=== PATIENT | female | born 1975 | race Caucasian/White ===

== ENCOUNTER 2023-06-27 02:54 | Emergency (ER) | payer MEDICAID, SELFPAY ==
[2023-06-27 03:02] VITALS: BP 131/77; PULSE 103; RESP 21; TEMP 36.6; O2SAT 96
--- NOTE | 2023-06-27 03:06 | ECG_ITS ---
[facility] Test Date: 2023-06-27 Pat Name: Sally Andrews Department: Room: Gender: Female [employer] Teammate: : 1975 Requested By: Rusty Ruiz Order Number: [id number] Mark MD: Nile Perez M.D. Measurements Intervals [place] Rate: 98 P: 14 UT: 130 QRS: 40 QRSD: 81 T: 83 QT: 352 QTc: 451 Interpretive Statements SINUS RHYTHM No previous ECG available for comparison Electronically Signed On 06-27-2023 12:17:48 NEUROPHYSIOLOGY TECH by Nile Perez M.D. [id number]
--- NOTE | 2023-06-27 03:06 | XRR_ITS ---
PROCEDURE INFORMATION: Exam: XR Chest Exam date and time: 06/27/2023 3:12 AM Age: 48 years old Clinical indication: Shortness of breath; Additional info: SOB TECHNIQUE: Imaging protocol: Radiologic exam of the chest. Views: 1 view. COMPARISON: No relevant prior studies available. FINDINGS: Lungs: Unremarkable. No consolidation. Pleural spaces: Unremarkable. No pleural effusion. No pneumothorax. Heart/Mediastinum: Unremarkable. No cardiomegaly. Bones/joints: Unremarkable. XR/XR chest 1V portable [id number] IMPRESSION: No acute findings.
--- NOTE | 2023-06-27 03:07 | W.ED.SOB ---
HPI - SOB/Dyspnea General: Chief Complaint: Shortness of Breath/Dyspnea Stated Complaint: nereyda helm Time Seen by Provider: 06/27/23 02:55 Source: patient Mode of arrival: ambulatory Limitations: no limitations History of Present Illness: HPI Narrative: 48-year-old female has a history of asthma states over the last 3 days she has had increasing cough and congestion along with wheezing. She denies any fever she denies any chest pain she denies any worsening improving factors. Associated symptoms: Deny abdominal pain, chest pain, fever(s), nausea or vomiting Review of Systems Const: Denies: fever(s), chills, body aches or change in appetite ENMT: Denies: throat pain or dental pain Card: Denies: chest pain Resp: Reports: dyspnea, non-productive cough and wheezing GI: Denies: abdominal pain, nausea, vomiting or diarrhea : Denies: dysuria Musc: Denies: neck pain or back pain Skin/Breast: Denies: rash Neuro: Denies: headache(s) Physical Exam Const: COMMON NORMALS: no acute distress, patient oriented x3 and healthy appearing HENMT: COMMON NORMALS: normocephalic and atraumatic HEAD & SCALP: normocephalic and atraumatic Neck/C-Spine: COMMON NORMALS: full ROM and supple Chest: COMMONS NORMALS: normal inspection of the chest and normal palpation of entire chest wall Resp: COMMON NORMALS: normal respiratory effort, No retractions and No use of accessory muscles AUSCULTATION: wheezes Cardio: COMMON NORMALS: regular rate, regular rhythm and No murmurs present (Cardio) RATE: regular rate RHYTHM: regular rhythm GI: COMMON NORMALS: Normal to inspection, nondistended, normoactive bowel sounds present, Soft to palpation, non-tender and no masses PALPATION: Yes Soft to palpation Extremity: COMMON NORMALS: normal to inspection and full ROM Neuro: COMMON NORMALS: patient oriented x3, moves all extremities and no focal motor deficits Psych: COMMON NORMALS: mental status grossly normal, Normal thought process present and cooperative THOUGHT PROCESS: Normal thought process present Skin: COMMON NORMALS: no rashes or lesions noted and no wounds GENERAL SKIN EXAM: no rashes or lesions noted Course Vital Signs: Vital signs: Vital Signs Temperature 97.8 F 06/27/23 03:02 Pulse Rate 93 06/27/23 04:02 Respiratory Rate 16 06/27/23 04:02 Blood Pressure 112/72 06/27/23 04:02 Pulse Oximetry 91 06/27/23 04:02 Oxygen Delivery Me thod Room Air 06/27/23 03:25 MDM - SOB/Dyspnea Medical Decision Making Patient presents here with shortness of breath cough with COPD exacerbation she feels improved after IV steroids and breathing treatment x-ray blood work here normal no signs of pneumonia we will prescribe her prednisone she is to follow-up with her PCP and return if worsening. Medical Records I reviewed the patient's medical records. Lab Data I reviewed the patient's lab results. 06/27/23 03:11 06/27/23 03:11 Labs/Radiology: Radiology Impressions Chest X-Ray 06/27/23 03:06 IMPRESSION: No acute findings. Laboratory Results WBC 9.15 10^3/uL (3.29-11.43) 06/27/23 03:11 RBC 4.89 10^6/uL (3.85-5.65) 06/27/23 03:11 Hgb 10.90 g/dL (11.27-16.99) L 06/27/23 03:11 Hct 35.9 % (36-47) L 06/27/23 03:11 MCV 73.4 fl (85-98) L 06/27/23 03:11 MCH 22.3 pg (27-33) L 06/27/23 03:11 MCHC 30.4 g/dL (30-55) 06/27/23 03:11 RDW 17.2 % (12.1-15.1) H 06/27/23 03:11 Plt Count 401 10^3/cmm (157-399) H 06/27/23 03:11 MPV 9.4 fL (7.4-10.4) 06/27/23 03:11 Neut % (Auto) 53.9 % 06/27/23 03:11 Lymph % (Auto) 34.4 % 06/27/23 03:11 [place] % (Auto) 8.4 % 06/27/23 03:11 Eos % (Auto) 2.1 % 06/27/23 03:11 Baso % (Auto) 0.9 % 06/27/23 03:11 Neut # (Auto) 4.93 10^3/uL (1.8-7.7) 06/27/23 03:11 Lymph # (Auto) 3.2 10^3/uL (0.8-4.8) 06/27/23 03:11 Towner # (Auto) 0.8 10^3/uL (0.2-0.9) 06/27/23 03:11 Eos # (Auto) 0.2 10^3/uL (0.0-0.8) 06/27/23 03:11 Baso # (Auto) 0.1 10^3/uL (0.0-0.1) 06/27/23 03:11 Nucleated RBC % (auto) 0 % 06/27/23 03:11 Nucleated RBCs # 0.0 /100WBC 06/27/23 03:11 Sodium 135 mmol/L (136-145) L 06/27/23 03:11 Potassium 3.9 mmol/L (3.5-5.1) 06/27/23 03:11 Chloride 100 mmol/L (98-107) 06/27/23 03:11 Carbon Dioxide 24 mmol/L (22-29) 06/27/23 03:11 Anion Gap 14.9 (5-19) 06/27/23 03:11 BUN 14 mg/dL (6-20) 06/27/23 03:11 Creatinine 0.7 mg/dL (0.5-0.9) 06/27/23 03:11 GFR Calculation 89.7 mL/min (90-130) L 06/27/23 03:11 Glucose 127 mg/dL (65-115) H 06/27/23 03:11 Calculated Osmolality 282 mOsm/kg (285-295) L 06/27/23 03:11 Calcium 8.6 mg/dL (8.5-10.5) 06/27/23 03:11 Total Bilirubin 0.2 mg/dL (0.15-1.2) 06/27/23 03:11 AST 29 U/L (0-32) 06/27/23 03:11 ALT 19 U/L (0-33) 06/27/23 03:11 Alkaline Phosphatase 105 U/L (35-105) 06/27/23 03:11 NT-Pro-B Natriuret Pep < 36 pg/mL (0-125) 06/27/23 03:11 Total Protein 6.8 g/dL (6.6-8.7) 06/27/23 03:11 Albumin 3.7 g/dL (3.5-5.2) 06/27/23 03:11 Globulin 3.1 g/dL (1.3-4.6) 06/27/23 03:11 Influenza Type A Ag negative (Negative) 06/27/23 03:11 Influenza Type B Ag negative (Negative) 06/27/23 03:11 SARS-CoV-2 Ag (Rapid) negative (Negative) 06/27/23 03:11 No radiology studies performed this visit EKG Data EKG 1: I personally reviewed and interpreted this EKG as follows: EKG Interpretation Date: 06/27/23 EKG interpretation time: 03:35 Interpretation: nsr hr [address] or t wave abnormalities qrs 81 qtc 407 Discharge Plan Discharge Patient Disposition: Home Clinical Impression: Acute exacerbation of chronic obstructive airways disease Condition: Stable Prescriptions: New cephalexin 500 mg capsule 500 mg PO TID 7 Days Qty: 21 0RF prednisone 50 mg tablet 50 mg PO DAILY Qty: 5 0RF albuterol sulfate 90 mcg/actuation HFA aerosol inhaler 2 inh INHALATION Q6H PRN (Reason: shortness of breath or wheezing) Qty: 8 0RF Discharge Orders: Discharge ED (Routine); Ordered 06/27/23 Ordered By: Rusty Ruiz Discharge Diet: Advance as tolerated Discharge Activity: Resume usual activity Patient Instructions: Chronic Bronchitis (ED) Coding Level of Care Code ED Senior [employer] Assurance Specialist for Bill Menjivar
[2023-06-27 03:15] LABS: Basophils # 0.1 10^3/uL (0.0-0.1); Basophils % 0.9 %; Eosinophils # 0.2 10^3/uL (0.0-0.8); Eosinophils % 2.1 %; Hematocrit 35.9 % (36-47); Lymphocytes # 3.2 10^3/uL (0.8-4.8); Lymphocytes % 34.4 %; Mean Corpuscular HGB Conc 30.4 g/dL (30-55); Mean Corpuscular Hemoglobin 22.3 pg (27-33); Mean Corpuscular Volume 73.4 fl (85-98); Mean Platelet Volume 9.4 fL (7.4-10.4); Monocytes # 0.8 10^3/uL (0.2-0.9); Monocytes % 8.4 %; Neutrophils # 4.93 10^3/uL (1.8-7.7); Neutrophils % 53.9 %; Nucleated Red Blood Cells % 0 %; Platelet Count 401 10^3/cmm (157-399); Red Blood Count 4.89 10^6/uL (3.85-5.65); Red Cell Distribution Width 17.2 % (12.1-15.1); White Blood Count 9.15 10^3/uL (3.29-11.43)
[2023-06-27] MEDS: albuterol 2.5 mg/3 mL Neb INHALATION (03:23)
[2023-06-27] MEDS: ipratropium-albuterol 3 mL Neb INHALATION (03:23)
[2023-06-27 03:25] VITALS: PULSE 99; RESP 20; O2SAT 94
[2023-06-27 03:29] VITALS: PULSE 102
[2023-06-27] MEDS: methylPREDNISolone sod succ 125 mg/2 mL INJ IV (03:30)
[2023-06-27 03:31] LABS: Influenza A by IFA negative (Negative); Influenza B by IFA negative (Negative)
[2023-06-27 03:43] LABS: Alanine Aminotransferase 19 U/L (0-33); Albumin Level 3.7 g/dL (3.5-5.2); Alkaline Phosphatase 105 U/L (35-105); Anion Gap 14.9 (5-19); Aspartate Amino Transferase 29 U/L (0-32); Blood Urea Nitrogen 14 mg/dL (6-20); Calcium 8.6 mg/dL (8.5-10.5); Carbon Dioxide 24 mmol/L (22-29); Chloride 100 mmol/L (98-107); Globulin 3.1 g/dL (1.3-4.6); Glomerular Filtration Rate 89.7 mL/min (90-130); Glucose 127 mg/dL (65-115); NT Pro B Type Natriuretic Pept < 36 pg/mL (0-125); Osmolality Calculated 282 mOsm/kg (285-295); Potassium 3.9 mmol/L (3.5-5.1); Sodium 135 mmol/L (136-145); Total Bilirubin 0.2 mg/dL (0.15-1.2); Total Protein 6.8 g/dL (6.6-8.7)
[2023-06-27 04:02] VITALS: BP 112/72; PULSE 93; RESP 16; O2SAT 91
[2023-06-27 04:03] LABS: SARS Covid-2 Antigen negative (Negative)
[2023-06-27 04:51] VITALS: BP 112/72; PULSE 93; RESP 16; TEMP 36.6; O2SAT 91
== END 2023-06-27 04:52 | disposition home or self-care (01) ==
PROVIDERS: Emergency Provider Emergency Medicine
DX: J44.1 Chronic obstructive pulmonary disease with (acute) exacerbation (principal); Z11.52 Encounter for screening for COVID-19
CPT/HCPCS: 71045; 80053; 83880; 85025; 87426; 87804; 93005; 94640; 96374; 99285; J2930; J7613

== ENCOUNTER 2023-12-16 04:05 | Emergency (ER) | payer MEDICAID, SELFPAY ==
[2023-12-16 04:13] VITALS: BP 159/101; PULSE 93; RESP 16; TEMP 36.4; O2SAT 100; BMI 29.0
--- NOTE | 2023-12-16 04:20 | XRR_ITS ---
PROCEDURE INFORMATION: Exam: XR Left Hand Exam date and time: 12/16/2023 4:25 AM Age: 48 years old Clinical indication: Pain; Hand; Left; Additional info: Left ulnar sided hand pain TECHNIQUE: Imaging protocol: Radiologic exam of the left hand. Views: 3 or more views. COMPARISON: No relevant prior studies available. FINDINGS: Bones/joints: Normal. No fracture or dislocation. No acute osseous or joint abnormality. Soft tissues: Normal. XR/XR hand LT min 3V* [id number] IMPRESSION: No acute findings.
--- NOTE | 2023-12-16 04:21 | ED_ITS ---
HPI - Extremity Problem General: Chief complaint: Extremity Problem,Nontraumatic Stated complaint: Left hand injury Time Seen by Provider: 12/16/23 04:13 History of Present Illness: 48-year-old female who presents emergenc y room with left hand pain. She is having some pain just below her fifth digit on her left hand. She says she does not know of any injuries but it was sore yesterday of the night she bumped it on her headboard and woke up in severe pain. She says it is difficult to move her fifth digit secondary to pain. There is some mild redness on the lateral side of the hand there. She has not taken any anti-inflammatories. Review of Systems Narrative: Constitutional symptoms: Negative except as documented in HPI. Skin symptoms: Negative except as documented in HPI. Eye symptoms: Negative except as documented in HPI. ENMT symptoms: Negative except as documented in HPI. Respiratory symptoms: Negative except as documented in HPI. Cardiovascular symptoms: Negative except as documented in HPI. Gastrointestinal symptoms: Negative except as documented in HPI. Genitourinary symptoms: Negative except as documented in HPI. Musculoskeletal symptoms: Negative except as documented in HPI. Neurologic symptoms: Negative except as documented in HPI. Psychiatric symptoms: Negative except as documented in HPI. Endocrine symptoms: Negative except as documented in HPI. [facility] ED Female Reproductive History: Date of last menstrual period: 12/03/23 Physical Exam Narrative: EXAM NARRATIVE: General: Alert, no acute distress. Skin: warm and dry Head: Normocephalic Neck: Trachea midline Eye: Extraocular movements are intact. Ears, nose, mouth and throat: Oral mucosa moist Respiratory: Respirations are non-labored Musculoskeletal: There is a very tender area just below her left fifth digit. There is mild redness there. She has limited range of motion of her fifth digit secondary to pain. No obvious deformities. Neurological: Alert and oriented, No focal neurological deficit observed. Psychiatric: Cooperative, appropriate mood & affect. Course Vital Signs: Vital signs: Vital Signs Temperature 97.6 F 12/16/23 04:13 Pulse Rate 93 12/16/23 04:13 Respiratory Rate 16 12/16/23 04:13 Blood Pressure 159/101 12/16/23 04:13 Pulse Oximetry 100 12/16/23 04:13 Oxygen Delivery Me thod Room Air 12/16/23 04:13 MDM - Extremity (Nontraumatic) Medical Decision Making X-ray of the left hand shows no obvious Fractures or dislocations. This was reviewed by myself the emergency room physician. Assessment and plan: Hand pain -Difficult to say if this is infectious or inflammatory or just from an injury. Treating for all the above. IM Toradol, IM Decadron and p.o. Bactrim started here in the emergency room. I will continue her on anti-inflammatories and antibiotics and she will follow-up with Ortho if pain persist. - Discharged home - Discussed plan with patient. Answered any questions. - Evaluation and treatment of this problem were appropriate in the emergency setting. XR interpretation done by ED provider, pending radiology final review Discharge Plan Discharge Patient Disposition: Home Clinical Impression: Hand pain Condition: Stable Prescriptions: New prednisone 20 mg tablet 60 mg PO DAILY 5 Days Qty: 15 0RF Bactrim DS 800-160 mg tablet 2 tab PO BID 7 Days Qty: 28 0RF diclofenac sodium 50 mg tablet,delayed release (DR/EC) 50 mg PO Q12H Qty: 20 0RF No Action prednisone 50 mg tablet 50 mg PO DAILY Qty: 5 0RF albuterol sulfate 90 mcg/actuation HFA aerosol inhaler 2 inh INHALATION Q6H PRN (Reason: shortness of breath or wheezing) Qty: 8 0RF Discharge Orders: Discharge ED (Routine); Ordered 12/16/23 Ordered By: Caitlyn Stauffer Referrals: Ashley Sarmiento MD [Physician] - 1-3 days (Please call for an appointment if pain persists) Discharge Diet: Usual diet Discharge Activity: Increase activity as tolerated Patient Instructions: Opioid Safety, Pain Management Activity Restrictions/Additional Instructions: Thank you for choosing [facility] for your healthcare needs today. Please realize this is an emergency room and that we are providing you with a medical screening exam and this may not be complete and all inclusive of all the testing and or work up that you may need to determine your ailment or severity of your illness. You have been screened and evaluated and felt safe for discharge. Health conditions do change or evolve sometimes and as such it is important that you follow up with your Primary Doctor to be re checked, 3-5 days is a general good time frame for follow up. You are always welcome to return to the ED for re assessment if your symptoms are worsening or you have new concerns Coding Level of Care Code ED Bilingual Social Worker for Bill Menjivar
[2023-12-16] MEDS: dexamethasone 10 mg/mL INJ IM (04:30)
[2023-12-16] MEDS: ketorolac 60 mg/2 mL INJ IM (04:30)
[2023-12-16] MEDS: sulfamethoxazole-trimeth DS 160-800 mg Tablet 2 TAB PO (04:31)
[2023-12-16 04:48] VITALS: BP 159/101; PULSE 93; RESP 16; TEMP 36.4; O2SAT 100
== END 2023-12-16 04:49 | disposition home or self-care (01) ==
PROVIDERS: Emergency Provider Emergency Medicine
DX: M79.642 Pain in left hand (principal)
CPT/HCPCS: 73130; 96372; 99283; J1100; J1885